=== PATIENT | male | born 1990 | race African-American/Black ===

== ENCOUNTER 2017-03-17 10:23 | Inpatient (IN) | payer OTHER ==
[2017-03-17 11:56] VITALS: BMI 23.5
--- NOTE | 2017-03-17 13:40 | HP ---
CIWA Score - CIWA Score Nausea/Vomitin Muscle Tremors: 3 Anxiety: 3 Agitation: 3 Paroxysmal Sweats: 2 Orientation: 0-Oriented Tacttile Disturbances: 2-Mild Itch/Numbness/Burn Auditory Disturbances: 2-Mild Harshness/Frighten Visual Disturbances: 2-Mild Sensitivity Headache: 2-Mild CIWA-Ar Total Score: 22 Admission ROS [facility] - HPI Chief Complaint: i need help to stop drinking alcohol Allergies/Adverse Reactions: Allergies Allergy/AdvReac Type Severity Reaction Status Date / Time No Known Allergies Allergy Verified 03/17/17 12:56 History of Present Illness: this 26 years old male with alcohol dependence,seeking detox,never been in detox before syncope bipolar disorder need help to stop drinking - Ebola screening Have you traveled outside of the country in the last 21 days: No (N) Have you had contact with anyone from an Ebola affected area: No Have you been sick,other than usual withdrawal symptoms: No - Review of Systems Constitutional: Loss of Appetite, Malaise, Night Sweats, Changes in sleep, Weakness EENT: reports: Nose Congestion Respiratory: reports: No Symptoms reported Cardiac: reports: No Symptoms Reported GI: reports: Diarrhea, Vomiting, Abdominal cramping : reports: No Symptoms Reported Musculoskeletal: reports: Back Pain, Muscle Pain Integumentary: reports: Dryness Neuro: reports: Headache, Tremors Endocrine: reports: No Symptoms Reported Hematology: reports: No Symptoms Reported Psychiatric: reports: No Sypmtoms Reported (bipolar disorder), Judgement Intact , Mood/Affect Appropiate, other Patient History - Patient Medical History Hx Anemia: No Hx Asthma: No Hx Chronic Obstructive Pulmonary Disease (COPD): No Hx Cancer: No Hx Cardiac Disorders: No Hx Congestive Heart Failure: No Hx Hypertension: No Hx Hypercholesterolemia: No Hx Pacemaker: No HX Cerebrovascular Accident: No Hx Seizures: No Hx Dementia: No Hx Diabetes: No Hx Gastrointestinal Disorders: No Hx Liver Disease: No Hx Genitourinary Disorders: No Hx Sexually Transmitted Disorders: No Hx Renal Disease (ESRD): No Hx Thyroid Disease: No Hx Human Immunodeficiency Virus (HIV): No (last 2015 negative) Hx Hepatitis C: No Hx Depression: No Hx Suicide Attempt: Yes (overdose at age 13) Hx Bipolar Disorder: Yes Hx Schizophrenia: No Other Medical History: no suicidal,no homicidal - Patient Surgical History Past Surgical History: No - PPD History Documented Results: Negative w/o proof Implanted On Prior [facility] Admission?: No PPD to be Administered?: Yes - Smoking Cessation Smoking history: Current every day smoker Have you smoked in the past 12 months: Yes Aproximately how many cigarettes per day: 5 Hx Chewing Tobacco Use: No Initiated information on smoking cessation: Yes 'Breaking Loose' booklet given: 03/17/17 - Substance & Tx. History Hx Alcohol Use: Yes Hx Substance Use: No Substance Use Type: Alcohol Hx Substance Use Treatment: No - Substances Abused Alcohol Route: Oral Frequency: Daily Amount used: elmer(1 liter) Age of first use: 6 Date of Last Use: 03/16/17 Family Disease History - Family Disease History Family Disease History: Other: Father (), Mother () Admission Physical Exam [facility] - Vital Signs Vital Signs: Vital Signs - 24 hr 03/17/17 11:53 Temperature 97.1 F L Pulse Rate 60 Respiratory 18 Rate Blood Pressure 129/94 - Physical General Appearance: Yes: Moderate Distress, Tremorous, Irritable, Sweating, Anxious HEENTM: Yes: Hearing grossly Normal, Normocephalic, Pharynx Normal Respiratory: Yes: Lungs Clear, Normal Breath Sounds, No Respiratory Distress Neck: Yes: Within Normal Limits, Supple, Trachea in good position Breast: Yes: Within Normal Limits Cardiology: Yes: Within Normal Limits, Regular Rhythm, Regular Rate, S1, S2 Abdominal: Yes: Non Tender, Soft, Organomegaly Genitourinary: Yes: Within Normal Limits Back: Yes: Muscle Spasm Musculoskeletal: Yes: full range of Motion, Back pain, Muscle Pain Extremities: Yes: Tremors 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 NML intact, Fully Oriented, Alert, Motor Strength 5/5 Integumentary: Yes: Dry Lymphatic: Yes: Within Normal Limits - Diagnostic (1) Alcohol dependence with uncomplicated withdrawal Current Visit: Yes Status: Acute (2) Syncope Current Visit: Yes Status: Acute (3) Bipolar disorder Current Visit: Yes Status: Acute (4) Nicotine dependence Current Visit: Yes Status: Acute Cleared for Admission [facility] - Detox or Rehab [facility] Level of Care: Medically Managed Detox Regimen/Protocol: Librium [facility] Breath Alcohol Content Breath Alcohol Content: 0 Urine Drug Screen - Results Drug Screen Negative: Yes
[2017-03-17] MEDS ORDERED: MENTHOL/PHENOL 1 EACH UD MM PRN (13:47)
[2017-03-17] MEDS ORDERED: hydrOXYzine PAMOATE 50 MG CAPSULE (FP) PO PRN (13:47)
[2017-03-17] MEDS ORDERED: ACETAMINOPHEN 325 MG TABLET (FP) PO PRN (13:47)
[2017-03-17] MEDS ORDERED: MAG HYDROX/AL HYDROX/SIMETH 30 ML UNIT-DOSE CUP PO PRN (13:47)
[2017-03-17] MEDS ORDERED: guaiFENesin/D-METHORPHAN HB 10 ML UNIT-DOSE CUPS PO PRN (13:47)
[2017-03-17] MEDS ORDERED: P-EPHED 60MG/TRIPROLIDI 2.5MG TABLET PO PRN (13:47)
[2017-03-17] MEDS ORDERED: diphenhydrAMINE HCL 50 MG CAPSULE PO PRN (13:47)
[2017-03-17] MEDS ORDERED: MAGNESIUM CITRATE 300 ML BOTTLE PO PRN (13:47)
[2017-03-17] MEDS ORDERED: MAGNESIUM HYDROX 2400MG/30ML ORAL SUSPENSION 30 ML CUP PO PRN (13:47)
[2017-03-17] MEDS ORDERED: chlordiazePOXIDE HCL 25 MG CAPSULE PO PRN (13:47)
[2017-03-17] MEDS ORDERED: LOPERAMIDE HCL 2 MG CAPSULE PO PRN (13:47)
[2017-03-17] MEDS ORDERED: IBUPROFEN 400 MG TABLET (FP) PO PRN (13:47)
[2017-03-17] MEDS ORDERED: chlordiazePOXIDE HCL 25 MG CAPSULE PO ONE (13:55)
--- NOTE | 2017-03-17 14:54 | CONSULT ---
[facility] Psychiatric Consult - Data Date of interview: 03/17/17 Admission source: [facility] Identifying data: This is 26 years old male with psychiatric hospitalization history intoxicated with: Alcohol, Nicotine, Substance Abuse History: - Smoking Cessation. Smoking history: Current every day smoker. Have you smoked in the past 12 months: Yes. Aproximately how many cigarettes per day: 5. Hx Chewing Tobacco Use: No. Initiated information on smoking cessation: Yes. 'Breaking Loose' booklet given: 03/17/17. - Substance & Tx. History. Hx Alcohol Use: Yes. Hx Substance Use: No. Substance Use Type : Alcohol. Hx Substance Use Treatment: No. - Substances Abused. Alcohol. Route: Oral. Frequency: Daily. Amount used: elmer(1 liter). Age of first use: 6. Date of Last Use: 03/16/17 Medical History: Syncope history Psychiatric History: Patient reports to carry Bipolar Disorder with most recent psychiatric admission on more then 10 years ago, reports taking prior to admission: Lamictal 50mg po bid Physical/Sexual Abuse/Trauma History: Denies Additional Comment: Lamictal 50mg po bid Mental Status Exam - Mental Status Exam Alert and Oriented to: Person Cognitive Function: Fair Patient Appearance: Well Groomed Mood: Apprehensive Affect: Mood Congruent Patient Behavior: Cooperative Speech Pattern: Appropriate Voice Loudness: Normal Thought Process: Goal Oriented Thought Disorder: Being Controlled Hallucinations: Denies Suicidal Ideation: Denies Homicidal Ideation: Denies Insight/Judgement: Fair Sleep: Difficulty falling asleep Appetite: Fair Muscle strength/Tone: Normal Gait/Station: Normal Additional Comments: Lamictal 50mg po bid Psychiatric Findings - Problem List ([place] 1, 2,3) (1) Alcohol dependence with uncomplicated withdrawal Current Visit: Yes Status: Acute (2) Bipolar disorder Current Visit: Yes Status: Acute (3) Nicotine dependence Current Visit: Yes Status: Acute (4) Drug-induced mood disorder Current Visit: Yes Status: Acute - Initial Treatment Plan Initial Treatment Plan: Lamictal 50mg po bid
[2017-03-17] MEDS: chlordiazePOXIDE HCL 25 MG CAPSULE PO SCH ×2 (17:07→22:27)
[2017-03-17 18:01] LABS: URINE APPEARANCE CLEAR; URINE BILIRUBIN NEGATIVE (NEGATIVE); URINE BLOOD NEGATIVE (NEGATIVE); URINE COLOR LTYELLOW; URINE GLUCOSE (UA) NEGATIVE (NEGATIVE); URINE KETONE NEGATIVE (NEGATIVE); URINE LEUK ESTERASE NEGATIVE (NEGATIVE); URINE NITRITE NEGATIVE (NEGATIVE); URINE PROTEIN NEGATIVE (NEGATIVE); URINE UROBILINOGEN NEGATIVE E.U./dl (0.2-1.0)
[2017-03-17] MEDS: lamoTRIgine 25 MG TABLET PO SCH (22:27)
[2017-03-17] MEDS: THIAMINE HCL 100 MG TABLET (FP) PO SCH (22:28)
[2017-03-18] MEDS: chlordiazePOXIDE HCL 25 MG CAPSULE PO SCH ×4 (05:52→22:46)
[2017-03-18 09:45] LABS: MCH 25.1 pg (25.7-33.7); MCHC 31.9 g/dl (32.0-35.9); MEAN CELL VOLUME 78.4 fl (80-96); MEAN PLT VOLUME 8.7 fl (7.5-11.1); PLATELET COUNT 178 K/MM3 (134-434); RDW 15.5 % (11.9-15.9); WHITE BLOOD COUNT 5.9 K/mm3 (4.0-10.0)
[2017-03-18 09:55] LABS: ALBUMIN 4.4 g/dl (3.4-5.0); ALK PHOS 60 U/L (45-117); ANION GAP 6 (8-16); BILIRUBIN,TOTAL 0.8 mg/dL (0.2-1.0); CALCIUM 9.2 mg/dL (8.5-10.1); CO2 30 mmol/L (21-32); CREATININE 0.9 mg/dL (0.7-1.3); GLUCOSE,RANDOM 87 mg/dL (74-106); SGOT/AST 17 U/L (15-37); SGPT/ALT 29 U/L (12-78); TOT PROT 7.5 g/dl (6.4-8.2)
[2017-03-18] MEDS: PRENATAL VITAMINS W/ FOLIC ACID TABLET (FP) PO SCH (10:26)
[2017-03-18] MEDS: lamoTRIgine 25 MG TABLET PO SCH ×2 (10:27→22:46)
--- NOTE | 2017-03-18 11:05 | EKG ---
Test Reason : Blood Pressure : / mmHG Vent. Rate : 060 BPM Atrial Rate : 060 BPM P-R Int : 200 ms QRS Dur : 094 ms QT Int : 376 ms P-R-T Axes : 052 105 025 degrees QTc Int : 376 ms NORMAL SINUS RHYTHM RIGHTWARD AXIS SEPTAL INFARCT , AGE UNDETERMINED ABNORMAL ECG NO PREVIOUS ECGS AVAILABLE Confirmed by BIMAL APPLE MD ([id number]) on 03/18/2017 11:05:10 AM Referred By: Confirmed By:BIMAL APPLE MD
--- NOTE | 2017-03-18 13:25 | PN ---
S CIWA - CIWA Score Nausea/Vomitin-Mild Nausea/No Vomiting Muscle Tremors: 4-Moderate,w/Arms Extend Anxiety: 3 Agitation: 2 Paroxysmal Sweats: 3 Orientation: 0-Oriented Tacttile Disturbances: 3-Moderate Itch/Numb/Burn Auditory Disturbances: 1-Very Mild Visual Disturbances: 0-None Headache: 0-None Present CIWA-Ar Total Score: 17 BHS Progress Note (SOAP) Subjective: Tremors, Sweating. Objective: PT. A & O X 3. NO ACUTE DISTRESS. 03/18/17 13:22 Vital Signs Temperature 97.2 F L 03/18/17 09:48 Pulse Rate 67 03/18/17 09:48 Respiratory Rate 18 03/18/17 09:48 Blood Pressure 101/66 03/18/17 09:48 O2 Sat by Pulse Oximetry (%) Laboratory Tests 03/17/17 03/18/17 03/18/17 15:00 06:00 06:00 WBC 5.9 RBC 5.45 Hgb 13.6 Hct 42.7 MCV 78.4 L MCHC 31.9 L RDW 15.5 Plt Count 178 MPV 8.7 Sodium 139 Potassium 4.0 Chloride 103 Carbon Dioxide 30 Anion Gap 6 L BUN 12 Creatinine 0.9 Creat Clearance w eGFR > 60 Random Glucose 87 Calcium 9.2 Total Bilirubin 0.8 AST 17 ALT 29 Alkaline Phosphatase 60 Total Protein 7.5 Albumin 4.4 Urine Color Ltyellow Urine Appearance Clear Urine pH 6.0 Ur Specific [place] 1.020 Urine Protein Negative Urine Glucose (UA) Negative Urine Ketones Negative Urine Blood Negative Urine Nitrite Negative Urine Bilirubin Negative Urine Urobilinogen Negative Ur Leukocyte Esterase Negative RPR Titer 03/18/17 06:00 WBC RBC Hgb Hct MCV MCHC RDW Plt Count MPV Sodium Potassium Chloride Carbon Dioxide Anion Gap BUN Creatinine Creat Clearance w eGFR Random Glucose Calcium Total Bilirubin AST ALT Alkaline Phosphatase Total Protein Albumin Urine Color Urine Appearance Urine pH Ur Specific [place] Urine Protein Urine Glucose (UA) Urine Ketones Urine Blood Urine Nitrite Urine Bilirubin Urine Urobilinogen Ur Leukocyte Esterase RPR Titer Nonreactive LABS NOTED. Assessment: 03/18/17 13:23 WITHDRAWAL SYMPTOMS. Plan: CONTINUE DETOX.
[2017-03-18] MEDS: THIAMINE HCL 100 MG TABLET (FP) PO SCH (22:46)
[2017-03-19] MEDS: chlordiazePOXIDE HCL 25 MG CAPSULE PO SCH ×2 (05:39→10:36)
[2017-03-19] MEDS: PRENATAL VITAMINS W/ FOLIC ACID TABLET (FP) PO SCH (10:35)
[2017-03-19] MEDS: lamoTRIgine 25 MG TABLET PO SCH ×2 (10:35→22:36)
--- NOTE | 2017-03-19 14:09 | PN ---
[facility] CIWA - CIWA Score Nausea/Vomitin-Mild Nausea/No Vomiting Muscle Tremors: 4-Moderate,w/Arms Extend Anxiety: 3 Agitation: 2 Paroxysmal Sweats: 3 Orientation: 0-Oriented Tacttile Disturbances: 1-Very Mild Itch/Numbness Auditory Disturbances: 2-Mild Harshness/Frighten Visual Disturbances: 1-Very Mild Sensitivity Headache: 0-None Present CIWA-Ar Total Score: 17 BHS Progress Note (SOAP) Subjective: Tremors, Anxious, Interrupted sleep. Objective: PT. A & O X 3, OBSERVED AMBULATING ON UNIT. NO ACUTE DISTRESS. 03/19/17 14:08 Vital Signs Temperature 97.4 F L 03/19/17 13:44 Pulse Rate 56 L 03/19/17 13:44 Respiratory Rate 18 03/19/17 13:44 Blood Pressure 112/70 03/19/17 13:44 O2 Sat by Pulse Oximetry (%) Laboratory Tests 03/17/17 03/18/17 03/18/17 15:00 06:00 06:00 WBC 5.9 RBC 5.45 Hgb 13.6 Hct 42.7 MCV 78.4 L MCHC 31.9 L RDW 15.5 Plt Count 178 MPV 8.7 Sodium 139 Potassium 4.0 Chloride 103 Carbon Dioxide 30 Anion Gap 6 L BUN 12 Creatinine 0.9 Creat Clearance w eGFR > 60 Random Glucose 87 Calcium 9.2 Total Bilirubin 0.8 AST 17 ALT 29 Alkaline Phosphatase 60 Total Protein 7.5 Albumin 4.4 Urine Color Ltyellow Urine Appearance Clear Urine pH 6.0 Ur Specific [place] 1.020 Urine Protein Negative Urine Glucose (UA) Negative Urine Ketones Negative Urine Blood Negative Urine Nitrite Negative Urine Bilirubin Negative Urine Urobilinogen Negative Ur Leukocyte Esterase Negative RPR Titer 03/18/17 06:00 WBC RBC Hgb Hct MCV MCHC RDW Plt Count MPV Sodium Potassium Chloride Carbon Dioxide Anion Gap BUN Creatinine Creat Clearance w eGFR Random Glucose Calcium Total Bilirubin AST ALT Alkaline Phosphatase Total Protein Albumin Urine Color Urine Appearance Urine pH Ur Specific [place] Urine Protein Urine Glucose (UA) Urine Ketones Urine Blood Urine Nitrite Urine Bilirubin Urine Urobilinogen Ur Leukocyte Esterase RPR Titer Nonreactive LABS NOTED. Assessment: 03/19/17 14:08 WITHDRAWAL SYMPTOMS. Plan: CONTINUE DETOX.
[2017-03-19] MEDS: chlordiazePOXIDE 5 MG CAPSULE PO SCH ×2 (17:13→22:36)
[2017-03-19] MEDS: THIAMINE HCL 100 MG TABLET (FP) PO SCH (22:36)
[2017-03-20] MEDS: chlordiazePOXIDE 5 MG CAPSULE PO SCH ×2 (05:38→10:47)
[2017-03-20] MEDS: lamoTRIgine 25 MG TABLET PO SCH ×2 (10:46→22:30)
[2017-03-20] MEDS: PRENATAL VITAMINS W/ FOLIC ACID TABLET (FP) PO SCH (10:46)
--- NOTE | 2017-03-20 13:05 | PN ---
BHS Progress Note (SOAP) Subjective: Tremors only Detox symptom reported by patient today. Objective: PT. A & O X 3, OBSERVED AMBULATING ON UNIT. NO ACUTE DISTRESS. 03/20/17 13:04 Vital Signs Temperature 96.3 F L 03/20/17 10:13 Pulse Rate 63 03/20/17 10:13 Respiratory Rate 18 03/20/17 10:13 Blood Pressure 111/66 03/20/17 10:13 O2 Sat by Pulse Oximetry (%) Laboratory Tests 03/17/17 03/18/17 03/18/17 15:00 06:00 06:00 WBC 5.9 RBC 5.45 Hgb 13.6 Hct 42.7 MCV 78.4 L MCHC 31.9 L RDW 15.5 Plt Count 178 MPV 8.7 Sodium 139 Potassium 4.0 Chloride 103 Carbon Dioxide 30 Anion Gap 6 L BUN 12 Creatinine 0.9 Creat Clearance w eGFR > 60 Random Glucose 87 Calcium 9.2 Total Bilirubin 0.8 AST 17 ALT 29 Alkaline Phosphatase 60 Total Protein 7.5 Albumin 4.4 Urine Color Ltyellow Urine Appearance Clear Urine pH 6.0 Ur Specific [place] 1.020 Urine Protein Negative Urine Glucose (UA) Negative Urine Ketones Negative Urine Blood Negative Urine Nitrite Negative Urine Bilirubin Negative Urine Urobilinogen Negative Ur Leukocyte Esterase Negative RPR Titer 03/18/17 06:00 WBC RBC Hgb Hct MCV MCHC RDW Plt Count MPV Sodium Potassium Chloride Carbon Dioxide Anion Gap BUN Creatinine Creat Clearance w eGFR Random Glucose Calcium Total Bilirubin AST ALT Alkaline Phosphatase Total Protein Albumin Urine Color Urine Appearance Urine pH Ur Specific [place] Urine Protein Urine Glucose (UA) Urine Ketones Urine Blood Urine Nitrite Urine Bilirubin Urine Urobilinogen Ur Leukocyte Esterase RPR Titer Nonreactive LABS NOTED. Assessment: 03/20/17 13:04 WITHDRAWAL SYMPTOMS. Plan: CONTINUE DETOX.
[2017-03-20] MEDS: chlordiazePOXIDE HCL 10 MG CAPSULE PO SCH ×2 (17:43→22:30)
[2017-03-20] MEDS: THIAMINE HCL 100 MG TABLET (FP) PO SCH (22:32)
[2017-03-21] MEDS: chlordiazePOXIDE HCL 10 MG CAPSULE PO SCH (05:57)
[2017-03-21 06:19] VITALS: BP 117/78; PULSE 55; TEMP 96.3
--- NOTE | 2017-03-21 14:20 | DS ---
[facility] Detox Discharge Summary Admission Date: 03/17/17 Discharge Date: 03/21/17 - History Present History: Alcohol Dependence Additional Comments: ADVISED PATIENT TO FOLLOW-UP WITH [facility] AFTER DISCHARGE FROM DETOX FOR GENERAL MEDICAL ASSESSMENT. Pertinent Past History: Bipolar Disorder. - Physical Exam Results Vital Signs: Vital Signs Temperature 96.3 F L 03/21/17 06:19 Pulse Rate 55 L 03/21/17 06:19 Respiratory Rate 16 03/21/17 06:19 Blood Pressure 117/78 03/21/17 06:19 O2 Sat by Pulse Oximetry (%) Pertinent Admission Physical Exam Findings: WITHDRAWAL SYMPTOMS. Laboratory Tests 03/17/17 03/18/17 03/18/17 15:00 06:00 06:00 WBC 5.9 RBC 5.45 Hgb 13.6 Hct 42.7 MCV 78.4 L MCHC 31.9 L RDW 15.5 Plt Count 178 MPV 8.7 Sodium 139 Potassium 4.0 Chloride 103 Carbon Dioxide 30 Anion Gap 6 L BUN 12 Creatinine 0.9 Creat Clearance w eGFR > 60 Random Glucose 87 Calcium 9.2 Total Bilirubin 0.8 AST 17 ALT 29 Alkaline Phosphatase 60 Total Protein 7.5 Albumin 4.4 Urine Color Ltyellow Urine Appearance Clear Urine pH 6.0 Ur Specific [place] 1.020 Urine Protein Negative Urine Glucose (UA) Negative Urine Ketones Negative Urine Blood Negative Urine Nitrite Negative Urine Bilirubin Negative Urine Urobilinogen Negative Ur Leukocyte Esterase Negative RPR Titer 03/18/17 06:00 WBC RBC Hgb Hct MCV MCHC RDW Plt Count MPV Sodium Potassium Chloride Carbon Dioxide Anion Gap BUN Creatinine Creat Clearance w eGFR Random Glucose Calcium Total Bilirubin AST ALT Alkaline Phosphatase Total Protein Albumin Urine Color Urine Appearance Urine pH Ur Specific [place] Urine Protein Urine Glucose (UA) Urine Ketones Urine Blood Urine Nitrite Urine Bilirubin Urine Urobilinogen Ur Leukocyte Esterase RPR Titer Nonreactive LABS NOTED. - Treatment Hospital Course: Detox Protocol Followed, Detoxed Safely, Responded well, Discharged Condition Good, Rehab Referral Accepted Patient has Accepted a Rehab Referral to: [facility]. PATIENT TO GO FOR ADMISSION ON 03/23/2017. - Medication Discharge Medications: Ambulatory Orders Lamotrigine [Lamictal -] 50 mg PO BID #60 tablet 03/17/17 Lamotrigine [Lamictal] 50 mg PO BID 03/17/17 - Diagnosis (1) Alcohol dependence with uncomplicated withdrawal Status: Acute (2) Bipolar disorder Status: Chronic Qualifiers: Active/Remission status: remission status unspecified Qualified Code (s): F31.9 - Bipolar disorder, unspecified (3) Drug-induced mood disorder Status: Acute (4) Nicotine dependence Status: Chronic Qualifiers: Nicotine product type: cigarettes Substance use status: uncomplicated Qualified Code(s): F17.210 - Nicotine dependence, cigarettes, uncomplicated (5) Syncope Status: Acute Qualifiers: Syncope type: unspecified Qualified Code(s): R55 - Syncope and collapse - AMA Did Patient Leave Against Medical Advice: No
== END 2017-03-21 09:05 | disposition home or self-care (01) | DRG 775 ==
LOC: YASAS 10:23 → Y3N 13:40
PROVIDERS: ADMIT Internal Medicine; ATTEND Internal Medicine
PROC: HZ2ZZZZ Detoxification Services for Substance Abuse Treatment (ICD-10-PCS; principal; 2017-03-21)
DX: F10.230 Alcohol dependence with withdrawal, uncomplicated (principal); F17.210 Nicotine dependence, cigarettes, uncomplicated; F39 Unspecified mood [affective] disorder; F19.24 Other psychoactive substance dependence with psychoactive substance-induced mood disorder; R55 Syncope and collapse
CPT/HCPCS: 36415; 80053; 81003; 85027; 86593; 93005; 93010

== ENCOUNTER 2017-04-10 15:43 | Inpatient (IN) | payer OTHER ==
[2017-04-10 17:11] VITALS: BMI 25.3
--- NOTE | 2017-04-10 17:26 | HP ---
Admission ROS [facility] Chief Complaint: I WANT TO GO TO REHAB LAST DETOX FROM 03/17/17-03/21/17 [facility] Allergies/Adverse Reactions: Allergies Allergy/AdvReac Type Severity Reaction Status Date / Time No Known Allergies Allergy Verified 03/17/17 12:56 History of Present Illness: 26 YEARS OLD MALE WITH LONG HISTORY OF ALCOHOL NICOTINE DEPENDENCE, DENIES MEDICAL ISSUE HAS BIPOLAR II TREATED WITH LOMACTAL IS ADMITTED TO REHAB Exam Limitations: No Limitations - Ebola screening Have you traveled outside of the country in the last 21 days: No Have you had contact with anyone from an Ebola affected area: No Have you been sick,other than usual withdrawal symptoms: No Do you have a fever: No - Review of Systems Constitutional: No Symptoms Reported, Weight Stable EENT: reports: Blurred Vision (WEAR EYE GLASSES AT HOME) Respiratory: reports: No Symptoms reported Cardiac: reports: No Symptoms Reported GI: reports: No Symptoms Reported : reports: No Symptoms Reported Musculoskeletal: reports: No Symptoms Reported Integumentary: reports: No Symptoms Reported Neuro: reports: No Symptoms reported Endocrine: reports: No Symptoms Reported Hematology: reports: No Symptoms Reported Psychiatric: reports: Judgement Intact, Mood/Affect Appropiate, Orientated x3 Other Systems: Reviewed and Negative Patient History - Patient Medical History Hx Anemia: No Hx Asthma: No Hx Chronic Obstructive Pulmonary Disease (COPD): No Hx Cancer: No Hx Cardiac Disorders: No Hx Congestive Heart Failure: No Hx Hypertension: No Hx Hypercholesterolemia: No Hx Pacemaker: No HX Cerebrovascular Accident: No Hx Seizures: No Hx Dementia: No Hx Diabetes: No Hx Gastrointestinal Disorders: No Hx Liver Disease: No Hx Genitourinary Disorders: No Hx Sexually Transmitted Disorders: No Hx Renal Disease (ESRD): No Hx Thyroid Disease: No Hx Human Immunodeficiency Virus (HIV): No (last 2016 negative) Hx Hepatitis C: No Hx Depression: No Hx Suicide Attempt: Yes (overdose at age 13) Hx Bipolar Disorder: Yes Hx Schizophrenia: No - Patient Surgical History Past Surgical History: No Hx Neurologic Surgery: No Hx Cataract Extraction: No Hx Cardiac Surgery: No Hx Lung Surgery: No Hx Breast Surgery: No Hx Breast Biopsy: No Hx Abdominal Surgery: No Hx Appendectomy: No Hx Cholecystectomy: No Hx Genitourinary Surgery: No Hx Orthopedic Surgery: No - PPD History Previous Implant?: Yes Documented Results: Negative w/proof Implanted On Prior R Admission?: Yes Date: 03/19/17 PPD to be Administered?: No - Smoking Cessation Smoking history: Never smoked Have you smoked in the past 12 months: No Aproximately how many cigarettes per day: 0 Cigars Per Day: 20 Hx Chewing Tobacco Use: No Initiated information on smoking cessation: Yes 'Breaking Loose' booklet given: 04/10/17 - Substance & Tx. History Hx Alcohol Use: Yes Hx Substance Use: No Substance Use Type: Alcohol Hx Substance Use Treatment: Yes (03/17-03/21/17 DETOX [facility]) - Substances Abused Alcohol Route: Oral Frequency: Daily Amount used: 24 [employer] Age of first use: 6 Date of Last Use: 04/10/17 (03/17/17) Family Disease History - Family Disease History Family Disease History: Other: Father (), Mother () Admission Physical Exam [facility] - Vital Signs Vital Signs: Vital Signs - 24 hr 04/10/17 17:08 Temperature 96.5 F L Pulse Rate 61 Respiratory 18 Rate Blood Pressure 133/97 - Physical General Appearance: Yes: No Apparent Distress, Nourished, Appropriately Dressed HEENTM: Yes: Hearing grossly Normal, Normal ENT Inspection, Normocephalic, Normal Voice Respiratory: Yes: Chest Non-Tender, Lungs Clear, Normal Breath Sounds, No Respiratory Distress, No Accessory Muscle Use Neck: Yes: Supple, Trachea in good position Breast: Yes: Breasts Symetrical Cardiology: Yes: Regular Rhythm, Regular Rate, S1, S2 Abdominal: Yes: Non Tender, Soft Genitourinary: Yes: Within Normal Limits Back: Yes: Normal Inspection Musculoskeletal: Yes: full range of Motion, Gait Steady Extremities: Yes: Normal Inspection, Normal Range of Motion, Non-Tender Neurological: Yes: Fully Oriented, Alert, Motor Strength 5/5, Normal Mood/Affect , Normal Response Integumentary: Yes: Normal Color, Warm Lymphatic: Yes: Within Normal Limits - Diagnostic (1) Alcohol dependence with uncomplicated withdrawal Current Visit: Yes Status: Acute (2) Nicotine dependence Current Visit: Yes Status: Acute Qualifiers: Nicotine product type: cigarettes Substance use status: in withdrawal Qualified Code(s): F17.213 - Nicotine dependence, cigarettes, with withdrawal (3) Bipolar II disorder Current Visit: Yes Status: Suspected Cleared for Admission [facility] - Detox or Rehab [facility] Level of Care: Observation Bed Detox Regimen/Protocol: Not Applicable Claeared for Rehab Admission: Yes [facility] Breath Alcohol Content Breath Alcohol Content: 0 Urine Drug Screen - Results Drug Screen Negative: Yes
[2017-04-10] MEDS ORDERED: LOPERAMIDE HCL 2 MG CAPSULE PO PRN (17:31)
[2017-04-10] MEDS ORDERED: IBUPROFEN 400 MG TABLET (FP) PO PRN (17:31)
[2017-04-10] MEDS ORDERED: P-EPHED 60MG/TRIPROLIDI 2.5MG TABLET PO PRN (17:31)
[2017-04-10] MEDS ORDERED: MENTHOL/PHENOL 1 EACH UD MM PRN (17:31)
[2017-04-10] MEDS ORDERED: guaiFENesin/D-METHORPHAN HB 10 ML UNIT-DOSE CUPS PO PRN (17:31)
[2017-04-10] MEDS ORDERED: ACETAMINOPHEN 325 MG TABLET (FP) PO PRN (17:31)
[2017-04-10] MEDS ORDERED: hydrOXYzine PAMOATE 50 MG CAPSULE (FP) PO PRN (17:31)
[2017-04-10] MEDS ORDERED: MAGNESIUM CITRATE 300 ML BOTTLE PO PRN (17:31)
[2017-04-10] MEDS ORDERED: NICOTINE POLACRILEX 4 MG GUM BC PRN (17:31)
[2017-04-10] MEDS ORDERED: MAG HYDROX/AL HYDROX/SIMETH 30 ML UNIT-DOSE CUP PO PRN (17:31)
[2017-04-10] MEDS ORDERED: MAGNESIUM HYDROX 2400MG/30ML ORAL SUSPENSION 30 ML CUP PO PRN (17:31)
[2017-04-10] MEDS ORDERED: NICOTINE 21 MG/24 HOURS TOPICAL PATCH TD PRN (18:00)
[2017-04-10] MEDS: lamoTRIgine 25 MG TABLET PO SCH (22:19)
[2017-04-10] MEDS: THIAMINE HCL 100 MG TABLET (FP) PO SCH (22:19)
[2017-04-11] MEDS: lamoTRIgine 25 MG TABLET PO SCH ×2 (09:32→21:08)
[2017-04-11] MEDS: PRENATAL VITAMINS W/ FOLIC ACID TABLET (FP) PO SCH (09:32)
[2017-04-11 10:28] LABS: MCH 25.1 pg (25.7-33.7); MCHC 31.9 g/dl (32.0-35.9); MEAN CELL VOLUME 78.8 fl (80-96); MEAN PLT VOLUME 8.3 fl (7.5-11.1); PLATELET COUNT 175 K/MM3 (134-434); RDW 15.2 % (11.9-15.9); WHITE BLOOD COUNT 5.9 K/mm3 (4.0-10.0)
[2017-04-11 10:29] LABS: URINE APPEARANCE CLEAR; URINE BILIRUBIN NEGATIVE (NEGATIVE); URINE BLOOD NEGATIVE (NEGATIVE); URINE COLOR YELLOW; URINE GLUCOSE (UA) NEGATIVE (NEGATIVE); URINE KETONE NEGATIVE (NEGATIVE); URINE LEUK ESTERASE NEGATIVE (NEGATIVE); URINE NITRITE NEGATIVE (NEGATIVE); URINE PROTEIN NEGATIVE (NEGATIVE); URINE UROBILINOGEN NEGATIVE mg/dL (0.2-1.0)
[2017-04-11 10:34] LABS: ALBUMIN 3.8 g/dl (3.4-5.0); ANION GAP 6 (8-16); CO2 31 mmol/L (21-32); GLUCOSE,RANDOM 93 mg/dL (74-106)
[2017-04-11 10:39] LABS: ALK PHOS 53 U/L (45-117); BILIRUBIN,TOTAL 0.8 mg/dL (0.2-1.0); CREATININE 0.9 mg/dL (0.7-1.3); SGOT/AST 13 U/L (15-37); SGPT/ALT 22 U/L (12-78); TOT PROT 6.4 g/dl (6.4-8.2)
--- NOTE | 2017-04-11 17:07 | HP ---
Psychiatrist Admission - Data Date of interview: 04/11/17 Admission source: [facility] Identifying data: First admission to [facility] at [address] [place] [address] for this 26 y/ o AA male seeking rehabilitation treatment for alcohol dependence.Patient is single,a father of two,domiciled unemployed and reportedly deprived of any means of support. Medical History: Patient endorses good general health. Psychiatric History: Patient denies history of psychiatric hospitalizations.He is however in OPD treatment at a mental health clinic in [place] (name not recalled).Diagnosed with Bipolar Disorder.Maintained on lamictal 100 mg/day.Mr Vergara indicates that he is adherent to his outpatient regime.Noted remote history of suicide attempt (age 13 ) via overdose with medications. Physical/Sexual Abuse/Trauma History: Patient denies. Vital Signs: Vital Signs - 24 hr 04/10/17 04/10/17 04/11/17 17:08 19:17 03:30 Temperature 96.5 F L 97.7 F Pulse Rate 61 64 Respiratory 18 18 18 Rate Blood Pressure 133/97 129/84 04/11/17 06:57 Temperature 98.2 F Pulse Rate 83 Respiratory 18 Rate Blood Pressure 110/74 Allergies/Adverse Reactions: Allergies Allergy/AdvReac Type Severity Reaction Status Date / Time lactose Allergy Severe Vomiting Verified 04/10/17 17:57 - Substance Abuse/Tx History Hx Alcohol Use: Yes Hx Substance Use: Yes (alcohol.No drugs.Never smokes.) Substance Use Type: Alcohol Hx Substance Use Treatment: Yes - Admission Criteria Previous failed treatment: Yes Poor recovery environment: Yes Comorbidities: Yes Lacks judgement: Yes Mental Status Exam - Mental Status Exam Alert and Oriented to: Time, Place, Person Cognitive Function: Good Patient Appearance: Well Groomed Mood: Hopeful, Euthymic Affect: Appropriate, Normal Range Patient Behavior: Appropriate, Cooperative Speech Pattern: Clear Voice Loudness: Normal Thought Process: Intact, Goal Oriented Thought Disorder: Not Present Hallucinations: Denies Suicidal Ideation: Denies Homicidal Ideation: Denies Insight/Judgement: Fair Sleep: Fair Appetite: Good Muscle strength/Tone: Normal Gait/Station: Normal Psychiatric Findings - Problem List ([place] 1, 2,3) (1) Bipolar disorder Current Visit: Yes Status: Chronic Qualifiers: Active/Remission status: remission status unspecified Qualified Code (s): F31.9 - Bipolar disorder, unspecified (2) Alcohol dependence Current Visit: Yes Status: Acute - Initial Treatment Plan Initial Treatment Plan: Previous records are reviewed.[facility] report is appreciated.Psychoeducation and support are provided in this session.Medications revisited.Lamictal 50 mg po bid.Ordered.Side effects/ benefits of lamotrigine discussed with the patient.Made aware of risk of exfoliative dermatitis.Patient reports a history of good reponse/tolerability to that medication.Instructed to alert staff if occurrence of skin rash.Patient is in agreement with this careplan.Observation.
[2017-04-11] MEDS: THIAMINE HCL 100 MG TABLET (FP) PO SCH (21:08)
[2017-04-12] MEDS: lamoTRIgine 25 MG TABLET PO SCH ×2 (09:44→21:15)
[2017-04-12] MEDS: PRENATAL VITAMINS W/ FOLIC ACID TABLET (FP) PO SCH (09:44)
--- NOTE | 2017-04-12 13:29 | EKG ---
Test Reason : Blood Pressure : / mmHG Vent. Rate : 063 BPM Atrial Rate : 063 BPM P-R Int : 206 ms QRS Dur : 086 ms QT Int : 374 ms P-R-T Axes : 057 096 057 degrees QTc Int : 382 ms NORMAL SINUS RHYTHM RIGHTWARD AXIS BORDERLINE ECG WHEN COMPARED WITH ECG OF 17-MAR-2017 14:00, NO SIGNIFICANT CHANGE WAS FOUND Confirmed by BIMAL APPLE MD ([id number]) on 04/12/2017 1:28:42 PM Referred By: Confirmed By:BIMAL APPLE MD
[2017-04-12] MEDS: THIAMINE HCL 100 MG TABLET (FP) PO SCH (21:15)
[2017-04-13] MEDS ORDERED: PT OWN MED DRAWER 7, Y5N ONE (09:42)
[2017-04-13] MEDS: lamoTRIgine 25 MG TABLET PO SCH ×2 (09:42→21:05)
[2017-04-13] MEDS: PRENATAL VITAMINS W/ FOLIC ACID TABLET (FP) PO SCH (09:44)
[2017-04-13] MEDS: THIAMINE HCL 100 MG TABLET (FP) PO SCH (21:05)
[2017-04-14] MEDS: lamoTRIgine 25 MG TABLET PO SCH ×2 (09:38→21:46)
[2017-04-14] MEDS: PRENATAL VITAMINS W/ FOLIC ACID TABLET (FP) PO SCH (09:38)
[2017-04-14] MEDS: THIAMINE HCL 100 MG TABLET (FP) PO SCH (21:46)
[2017-04-15] MEDS: PRENATAL VITAMINS W/ FOLIC ACID TABLET (FP) PO SCH (09:49)
[2017-04-15] MEDS: lamoTRIgine 25 MG TABLET PO SCH ×2 (09:49→21:55)
[2017-04-15] MEDS: diphenhydrAMINE HCL 50 MG CAPSULE PO PRN (21:55)
[2017-04-15] MEDS: THIAMINE HCL 100 MG TABLET (FP) PO SCH (21:55)
[2017-04-16] MEDS: lamoTRIgine 25 MG TABLET PO SCH ×2 (09:40→21:27)
[2017-04-16] MEDS: PRENATAL VITAMINS W/ FOLIC ACID TABLET (FP) PO SCH (09:40)
[2017-04-16] MEDS: diphenhydrAMINE HCL 50 MG CAPSULE PO PRN (21:27)
[2017-04-16] MEDS: THIAMINE HCL 100 MG TABLET (FP) PO SCH (21:28)
[2017-04-17] MEDS: lamoTRIgine 25 MG TABLET PO SCH ×2 (09:59→21:21)
[2017-04-17] MEDS: PRENATAL VITAMINS W/ FOLIC ACID TABLET (FP) PO SCH (09:59)
[2017-04-17] MEDS: diphenhydrAMINE HCL 50 MG CAPSULE PO PRN (21:21)
[2017-04-17] MEDS: THIAMINE HCL 100 MG TABLET (FP) PO SCH (21:22)
[2017-04-18] MEDS: lamoTRIgine 25 MG TABLET PO SCH ×2 (09:58→21:18)
[2017-04-18] MEDS: PRENATAL VITAMINS W/ FOLIC ACID TABLET (FP) PO SCH (09:58)
[2017-04-18] MEDS: THIAMINE HCL 100 MG TABLET (FP) PO SCH (21:19)
[2017-04-18] MEDS: diphenhydrAMINE HCL 50 MG CAPSULE PO PRN (21:19)
[2017-04-19] MEDS: PRENATAL VITAMINS W/ FOLIC ACID TABLET (FP) PO SCH (09:54)
[2017-04-19] MEDS: lamoTRIgine 25 MG TABLET PO SCH ×2 (09:54→21:19)
[2017-04-19] MEDS: diphenhydrAMINE HCL 50 MG CAPSULE PO PRN (21:19)
[2017-04-19] MEDS: THIAMINE HCL 100 MG TABLET (FP) PO SCH (21:19)
[2017-04-20] MEDS: PRENATAL VITAMINS W/ FOLIC ACID TABLET (FP) PO SCH (10:54)
[2017-04-20] MEDS: lamoTRIgine 25 MG TABLET PO SCH ×2 (10:54→21:25)
[2017-04-20] MEDS: diphenhydrAMINE HCL 50 MG CAPSULE PO PRN (21:24)
[2017-04-20] MEDS: THIAMINE HCL 100 MG TABLET (FP) PO SCH (21:25)
[2017-04-21] MEDS: lamoTRIgine 25 MG TABLET PO SCH ×2 (09:54→21:19)
[2017-04-21] MEDS: PRENATAL VITAMINS W/ FOLIC ACID TABLET (FP) PO SCH (09:54)
[2017-04-21] MEDS: THIAMINE HCL 100 MG TABLET (FP) PO SCH (21:19)
[2017-04-21] MEDS: diphenhydrAMINE HCL 50 MG CAPSULE PO PRN (21:19)
[2017-04-22] MEDS: lamoTRIgine 25 MG TABLET PO SCH ×2 (09:45→21:12)
[2017-04-22] MEDS: PRENATAL VITAMINS W/ FOLIC ACID TABLET (FP) PO SCH (09:45)
[2017-04-22] MEDS: diphenhydrAMINE HCL 50 MG CAPSULE PO PRN (21:12)
[2017-04-22] MEDS: THIAMINE HCL 100 MG TABLET (FP) PO SCH (21:13)
[2017-04-23 06:25] VITALS: BP 104/69; PULSE 72; TEMP 97.7
[2017-04-23] MEDS: lamoTRIgine 25 MG TABLET PO SCH (09:52)
[2017-04-23] MEDS: PRENATAL VITAMINS W/ FOLIC ACID TABLET (FP) PO SCH (09:52)
--- NOTE | 2017-04-23 11:45 | PN ---
Psychiatric Progress Note Vital Signs: Vital Signs Period Temp Pulse Resp BP Sys/Alonso Pulse Ox Last 24 Hr 97.7 F 72 16-18 104/69 Date of Session: 04/23/17 Chief Complaint:: discharge visit HPI: Patient is addressing alcohol dependence comorbid Bipolar disorder. ROS: WNL Current Medications: Active Medications Generic Name Dose Route Start Last Admin Trade Name Freq PRN Reason Stop Dose Admin Acetaminophen 650 mg 04/10/17 17:31 Tylenol - PO Q4H PRN PAIN Al Hydroxide/Mg Hydroxide 30 ml 04/10/17 17:31 Mylanta Oral Suspension - PO Q6H PRN DYSPEPSIA Diphenhydramine HCl 50 mg 04/10/17 17:31 04/22/17 21:12 Benadryl - PO 50 mg HSMR1 PRN Administration INSOMNIA Eucalyptus/Menthol/Phenol/Sorbitol 1 each 04/10/17 17:31 Cepastat Lozenge - MM Q4H PRN SORE THROAT Guaifenesin 10 ml 04/10/17 17:31 Robitussin Dm - PO Q6H PRN COUGH Hydroxyzine Pamoate 50 mg 04/10/17 17:31 Vistaril - PO Q4H PRN AGITATION Ibuprofen 400 mg 04/10/17 17:31 Motrin - PO Q6H PRN SEVERE PAIN Lamotrigine 50 mg 04/10/17 22:00 04/23/17 09:52 Lamictal - PO 50 mg BID USAMA Administration Loperamide HCl 4 mg 04/10/17 17:31 Imodium - PO Q6H PRN DIARRHEA Magnesium Citrate 300 ml 04/10/17 17:31 Citroma - PO Q48H PRN CONSTIPATION Magnesium Hydroxide 30 ml 04/10/17 17:31 Milk Of Magnesia - PO DAILY PRN CONSTIPATION Nicotine 21 mg 04/10/17 18:00 Nicoderm Patch - TD DAILY PRN WITHDRAWAL(CONT SUBST) Nicotine Polacrilex 4 mg 04/10/17 17:31 Nicorette Gum - BC Q2H PRN NICOTINE REPLACEMENT RX Multivit/Folic Acid/Iron 1 tab 04/11/17 10:00 04/23/17 09:52 Vitamins (Sjr) - PO Not Given DAILY USAMA Pseudoephedrine/Triprolidine 1 combo 04/10/17 17:31 Actifed - PO TID PRN NASAL CONGESTION Thiamine HCl 100 mg 04/10/17 22:00 04/22/17 21:13 Vitamin B1 - PO Not Given HS USAMA Current Side Effect: No Lab tests ordered: No Lab tests reviewed: Yes Provider note:: Patient completed today treatment and met his identified goals, will contineu to address his issues at [facility] Patient was encouraged to continue maintain abstinence and utilize all supports available to prevent relapses. Patient reported he does not need scripts for Lamictal since he has medication at home. Patient is stable for discharge. Total face to face time:: 20 Mental Status Exam - Mental Status Exam Alert and Oriented to: Time, Place, Person Cognitive Function: Good Patient Appearance: Well Groomed Affect: Appropriate, Normal Range Patient Behavior: Appropriate, Cooperative Speech Pattern: Clear, Appropriate Voice Loudness: Normal Thought Process: Intact, Goal Oriented Thought Disorder: Not Present Hallucinations: Denies Suicidal Ideation: Denies Homicidal Ideation: Denies Insight/Judgement: Fair Sleep: Fair Appetite: Fair Muscle strength/Tone: Normal Gait/Station: Normal Psychiatric Treatment Plan - Problem List (1) Alcohol dependence Current Visit: Yes (2) Nicotine dependence Current Visit: Yes Qualifiers: Nicotine product type: cigarettes Substance use status: in withdrawal Qualified Code(s): F17.213 - Nicotine dependence, cigarettes, with withdrawal (3) Bipolar disorder Current Visit: Yes Qualifiers: Active/Remission status: remission status unspecified Qualified Code (s): F31.9 - Bipolar disorder, unspecified
== END 2017-04-23 12:03 | disposition home or self-care (01) | DRG 772 ==
LOC: YASAS 15:43 → Y5N 17:35
PROVIDERS: ADMIT Psychiatry & Neurology Psychiatry; ATTEND Psychiatry & Neurology Psychiatry
PROC: HZ42ZZZ Group Counseling for Substance Abuse Treatment, Cognitive-Behavioral (ICD-10-PCS; principal; 2017-04-10)
DX: F10.20 Alcohol dependence, uncomplicated (principal); F17.213 Nicotine dependence, cigarettes, with withdrawal; F31.9 Bipolar disorder, unspecified; Z91.011 Allergy to milk products; Z91.5 Personal history of self-harm
CPT/HCPCS: 36415; 80053; 81003; 85027; 86593; 93005; 93010

== ENCOUNTER 2019-04-17 16:40 | Emergency (ER) | payer OTHER ==
[2019-04-17 17:16] VITALS: BMI 23.5
[2019-04-17] MEDS ORDERED: SODIUM CHLORIDE 0.9% 500 ML INFUS.BAG IV ONE (17:21)
--- NOTE | 2019-04-17 17:24 | PDOC ---
History of Present Illness - General Chief Complaint: Back Pain Stated Complaint: back pain,fever Time Seen by Provider: 04/17/19 16:49 - History of Present Illness Initial Comments: 04/17/19 21:29 28yo M no PMH presents from urgent care c/o fever, headache, neck pain, photophobia, and sore throat (resolved) x6days. Pt started to not feel well on Thursday and went to urgent care, where he was told he has a viral syndrome. Pt felt better for a couple days with Tylenol but then felt worse today so returned to Urgent Care. Strep test negative at urgent care. Pt sent here for concern for meningitis with temp of 101.7. Pt c/o fatigue, myalgias, photophobia , neck pain (currently resolved), sore throat (resolved yesterday), pressure- type bitemporal headache (currently resolved), fever, and chills. Denies N/V, CP , SOB, numbness/tingling, weakness, abdominal pain, D/C, blood in stool or urine , dysuria, flu shot. UTD on immunizations. PCP at [facility]. 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 Denies outdoor activity, camping, or known tick bites. Denies hx of similar sx. Past History - Past Medical History Allergies/Adverse Reactions: Allergies Allergy/AdvReac Type Severity Reaction Status Date / Time No Known Drug Allergies Allergy Verified 04/13/17 18:32 lactose AdvReac Severe Vomiting Verified 04/13/17 18:32 Home Medications: Ambulatory Orders NK [No Known Home Medication] 04/17/19 Anemia: No Asthma: No Cancer: No Cardiac Disorders: No CVA: No COPD: No CHF: No Dementia: No Diabetes: No GI Disorders: No Disorders: No HTN: No Hypercholesterolemia: No Kidney Stones: No Liver Disease: No Seizures: No Thyroid Disease: No - Surgical History Abdominal Surgery: No Appendectomy: No Cardiac Surgery: No Cholecystectomy: No Lung Surgery: No Neurologic Surgery: No Orthopedic Surgery: No - Reproductive History Testicular Surgery: No - Suicide/Smoking/Psychosocial Hx Smoking History: Current some day smoker Have you smoked in the past 12 months: Yes Number of Cigarettes Smoked Daily: 0 Cigars Per Day: 20 Information on smoking cessation initiated: Yes 'Breaking Loose' booklet given: 04/10/17 Hx Alcohol Use: No Drug/Substance Use Hx: No Substance Use Type: Alcohol Hx Substance Use Treatment: Yes Review of Systems - Review of Systems Comments:: 04/17/19 21:28 Constitutional: Positive for chills, fever, fatigue. HENT: Positive for sore throat. Negative for rhinorrhea, congestion. Eyes: Positive for photophobia. Negative for visual deficit. Respiratory: Negative for shortness of breath, cough, and wheezing. Cardiovascular: Negative for chest pain, palpitations, and leg swelling. Gastrointestinal: Negative for abdominal pain, blood in stool, constipation, diarrhea, nausea, and vomiting. Genitourinary: Negative for dysuria, flank pain, and hematuria. Musculoskeletal: Positive for myalgias and neck pain. Skin: Negative for rash. Neurological: Positive for headache. Negative for light-headedness, dizziness, syncope, weakness, numbness. Psychiatric/Behavioral: Negative for behavioral problems and confusion. *Physical Exam - Vital Signs Last Vital Signs Temp Pulse Resp BP Pulse Ox 101.3 F H 73 20 116/76 100 04/17/19 16:43 04/17/19 16:43 04/17/19 16:43 04/17/19 16:43 04/17/19 16:43 - Physical Exam Comments: 04/17/19 21:26 Gen: Alert, NAD, comfortable-appearing. HEENT: PERRL, EOMI, MMM, NCAT. No conjunctival pallor. Sclera are non-icteric. Oropharynx is clear. Neck supple, negative brudzinki. CV: Regular rate and rhythm. No murmurs, rubs, or gallops. PULM: No resp distress. CTAB, no wheezes, rales, or rhonchi. ABD: soft, NT/ND, no rebound tenderness or guarding, no CVA tenderness. BACK: No TTP of c/t/l-spine. No step-offs or deformities. MSK: No bony deformities. 2+ pulses in all extremities. NEURO: AAOx3. PERRL. No gross CN deficits. Strength and sensation grossly intact throughout. EXTREMITIES: No cyanosis. No clubbing. No edema. No calf tenderness. PSYCH: Normal mood and thought pattern. SKIN: Warm and dry. Normal capillary refill. No rashes. No jaundice. Procedures - Lumbar Puncture Indication: Meningitis CT Scan: Yes Betadine Prep: Yes Position: Sitting Volume(ml): 12 (1% lidocaine w/o epi) Lumbar Puncture Kit: Adult Traumatic Tap: No Tubes Obtained: 4 Clear Fluid: Yes Complications: No ED Treatment Course - LABORATORY CBC & Chemistry Diagram: 04/17/19 18:08 04/17/19 18:08 - RADIOLOGY Radiology Studies Ordered: Category Date Time Status HEAD CT WITHOUT CONTRAST [CT] Stat CT Scan 04/17/19 17:22 Ordered Medical Decision Making - Medical Decision Making 28yo M no PMH presents from urgent care with fever, headache, neck pain, photophobia, and sore throat (resolved) x6days. Strep test negative at urgent care. Concern for meningitis - give abx empirically, labs, and perform LP to r/ o. Headache bitemporal, pressure type, and no neurologic deficits or head injury - low concern for hemorrhage such as SDH, but r/o with CTH. Also consider viral meningitis or other viral infection such as a viral URI, particularly since he initially had a sore throat. -Labs: CBC, CMP, coags, Lact, BCx, Babesia, Lyme, Ehrlichia -CTH -LP -Decadron, Ceftriaxone, and Vanc -Dispo: pending w/u 04/17/19 21:18 CTH: no acute changes. Risks and benefits of LP discussed. Pt consents. LP done. Labs reviewed. No concerning findings, lact 0.8, WBC 4.7. Pending CSF, Babesia, Lyme, and Ehrlichia. *DC/Admit/Observation/Transfer Diagnosis at time of Disposition: Fever Qualifiers: Fever type: unspecified Qualified Code(s): R50.9 - Fever, unspecified - Discharge Dispostion Disposition: HOME Condition at time of disposition: Good - Referrals Referrals: [facility] [place] [Provider Group] - Patient Instructions Printed Discharge Instructions: Feverfew (Alternative Therapy) Additional Instructions: Drink plenty fluids. Alternate Tylenol Motrin as needed as directed for fever. Follow-up in the [facility] in 1-2 days. Return to the emergency department for any severe worsening symptoms. When he follow-up at the clinic they will review all the blood work which has not yet return today. Return to ED for any concerning symptoms. - Post Discharge Activity Forms/Work/School Notes: Back to Work
--- NOTE | 2019-04-17 17:35 | PDOC ---
Attending Attestation - Resident Resident Name: Anyi Ernandez - ED Attending Attestation I have performed the following: I have examined & evaluated the patient, The case was reviewed & discussed with the resident, I agree w/resident's findings & plan, Exceptions are as noted - HPI HPI: 04/17/19 17:33 28-year-old male with no past medical history presents from urgent care to rule out meningitis. Patient reported 5 days ago of developing headache, photophobia , neck discomfort sore throat. The following day he visited urgent care and had a strep test obtained which was negative. The patient was told that this was likely viral syndrome. However, the patient continued to persist to have symptoms including photophobia, headache and neck discomfort. Denies cough, vomiting. Denies sore throat. Continue to persist have fevers up to 101. Denies sick contacts or recent travels. Patient visited the urgent care today and sent the patient to the ER out of concerns for meningitis. - Physicial Exam PE: 04/17/19 17:35 GENERAL: Awake, alert, and fully oriented, in no acute distress HEAD: No signs of trauma EYES: PERRLA, EOMI, sclera anicteric, conjunctiva clear ENT: Auricles normal inspection, hearing grossly normal, nares patent, oropharynx clear without exudates. Moist mucosa NECK: Normal ROM, supple, negative brudzinki LUNGS: Breath sounds equal, clear to auscultation bilaterally. No wheezes, and no crackles HEART: Regular rate and rhythm, normal S1 and S2, no murmurs, rubs or gallops ABDOMEN: Soft, nontender, No guarding, no rebound. No masses EXTREMITIES: Normal range of motion, no edema. No clubbing or cyanosis. No cords, erythema, or tenderness. Negative kernig's. NEUROLOGICAL: Cranial nerves II through XII intact. Normal speech, normal gait. 5/5 strength and sensation intact. SKIN: Warm, Dry, normal turgor, no rashes or lesions noted. - Medical Decision Making 04/17/19 17:36 Vital Signs Temp Pulse Resp BP Pulse Ox 101.3 F H 73 20 116/76 100 04/17/19 16:43 04/17/19 16:43 04/17/19 16:43 04/17/19 16:43 04/17/19 16:43 This is a 28-year-old patient with headache, fevers and neck discomfort. I agree that this patient should be rule out for meningitis. Though the symptoms have been going on for several days, I suspect the patient may have viral meningitis. Patient reports that the Tylenol has completely remove the symptoms. However, given the consolation symptoms, should pursue with this workup. We'll obtain a head CT, labs and obtain a lumbar puncture. Risks and benefits were discussed with the patient including benefits of ruling out meningitis. Risks include pain, infection and post-lumbar headache. Patient consents for the procedure and agrees with the plan. 04/17/19 18:[address] reviewed. No acute findings. 04/17/19 18:32 There's a delay in the LP as the hospital does not have an adult LP kit. We have checked upstairs and had RNs search for a kit. As a result, [facility] will send an LP kit to [facility]. 04/17/19 19:00 [facility] Willson for further management and disposition.
[2019-04-17 18:51] LABS: HEMATOCRIT 44.9 % (35.4-49); MCH 24.4 pg (25.7-33.7); MCHC 31.3 g/dl (32.0-35.9); MEAN CELL VOLUME 78.2 fl (80-96); MEAN PLT VOLUME 8.5 fl (7.5-11.1); PLATELET COUNT 179 K/MM3 (134-434); RBC 5.74 M/mm3 (4.00-5.60); RDW 14.1 % (11.9-15.9); WHITE BLOOD COUNT 4.7 K/mm3 (4.0-10.8)
[2019-04-17 19:00] LABS: ALBUMIN 4.1 g/dl (3.4-5.0); BILIRUBIN,TOTAL 0.7 mg/dl (0.2-1); CALCIUM 9.2 mg/dl (8.5-10); CREATININE 0.9 mg/dl (0.55-1.3); POTASSIUM 3.8 mmol/L (3.5-5.1); TOT PROT 7.4 g/dl (6.4-8.2)
[2019-04-17 19:03] LABS: INR 1.22 (0.82-1.09); PROTHROMBIN TIME (PATIENT) 13.6 SEC (10.2-13.0)
[2019-04-17] MEDS ORDERED: DEXAMETHASONE SOD PHOSPHATE 20 MG/5 ML VIAL IVPB ONE (19:09)
[2019-04-17] MEDS ORDERED: VANCOMYCIN 1 GM in D5W (PRE-DOCKED) 1,000 MG/250 ML IVPB ONE (19:09)
[2019-04-17] MEDS ORDERED: CEFTRIAXONE 2,000 MG in DEXTROSE 5%-WATER - 50 ML IVPB ONE (19:09)
[2019-04-17] MEDS ORDERED: DEXAMETHASONE SOD PHOSPHATE 10 MG/1 ML VIAL ONE (19:40)
[2019-04-17] MEDS ORDERED: LIDOCAINE HCL 2% (50ML VIAL) SQ ONE (19:40)
[2019-04-17] MEDS ORDERED: LIDOCAINE HCL 2% (20ML MULTI-DOSE VIAL) NR ONE (19:43)
[2019-04-17] MEDS ORDERED: VANCOMYCIN 1,000 MG VIAL (RESTRICTED TO ID ONLY) ONE (19:47)
[2019-04-17 22:09] LABS: BF GLUCOSE (CSF ONLY) 56 mg/dL (40-70)
[2019-04-17 22:13] LABS: CSF APPEARANCE CLEAR; CSF COLOR COLORLESS
[2019-04-17 22:14] LABS: CSF WBC 4
[2019-04-17 22:15] LABS: CSF APPEARANCE CLEAR; CSF COLOR COLORLESS; CSF WBC 4
--- NOTE | 2019-04-17 22:27 | PDOC ---
*Physical Exam - Vital Signs Last Vital Signs Temp Pulse Resp BP Pulse Ox 101.3 F H 73 20 116/76 100 04/17/19 16:43 04/17/19 16:43 04/17/19 16:43 04/17/19 16:43 04/17/19 16:43 ED Treatment Course - LABORATORY CBC & Chemistry Diagram: 04/17/19 18:08 04/17/19 18:08 - ADDITIONAL ORDERS Additional order review: Laboratory Results 04/17/19 04/17/19 04/17/19 22:10 20:15 20:15 PT with INR INR PTT (Actin FS) Sodium Potassium Chloride Carbon Dioxide Anion Gap BUN Creatinine Est GFR (CKD-EPI)AfAm Est GFR (CKD-EPI)NonAf Random Glucose Lactic Acid Calcium Total Bilirubin AST ALT Alkaline Phosphatase Total Protein Albumin Urine Color Yellow Urine Appearance Clear Urine pH 5.0 Urine Protein Trace Urine Glucose (UA) Negative Urine Ketones 1+ H Urine Blood Negative Urine Nitrite Negative Urine Bilirubin 1+ H Urine Urobilinogen 0.2 Ur Leukocyte Esterase Negative CSF Appearance Clear Clear CSF Color Colorless Colorless CSF WBC 4 4 CSF RBC 24 41 CSF Neutrophils No Result Required. No Result Required. CSF Lymphocytes No Result Required. No Result Required. CSF Eosinophils No Result Required. No Result Required. CSF Basophils No Result Required. No Result Required. CSF Macrophages No Result Required. No Result Required. CSF Plasma Cells No Result Required. No Result Required. CSF Diff Comment No Result Required. No Result Required. CSF Comment Tube # 4 Tube # 1 CSF Glucose No Result Required. 56 CSF Total Protein No Result Required. 20 04/17/19 04/17/19 04/17/19 18:30 18:08 18:08 PT with INR 13.6 H INR 1.22 PTT (Actin FS) Sodium 137 Potassium 3.8 Chloride 100 Carbon Dioxide 28 Anion Gap 9 BUN 11.0 Creatinine 0.9 Est GFR (CKD-EPI)AfAm 132.37 Est GFR (CKD-EPI)NonAf 114.21 Random Glucose 90 Lactic Acid 0.8 Calcium 9.2 Total Bilirubin 0.7 AST 38 H ALT 43 Alkaline Phosphatase 67 Total Protein 7.4 Albumin 4.1 Urine Color Urine Appearance Urine pH Urine Protein Urine Glucose (UA) Urine Ketones Urine Blood Urine Nitrite Urine Bilirubin Urine Urobilinogen Ur Leukocyte Esterase CSF Appearance CSF Color CSF WBC CSF RBC CSF Neutrophils CSF Lymphocytes CSF Eosinophils CSF Basophils CSF Macrophages CSF Plasma Cells CSF Diff Comment CSF Comment CSF Glucose CSF Total Protein 04/17/19 18:08 PT with INR INR PTT (Actin FS) 32.9 Sodium Potassium Chloride Carbon Dioxide Anion Gap BUN Creatinine Est GFR (CKD-EPI)AfAm Est GFR (CKD-EPI)NonAf Random Glucose Lactic Acid Calcium Total Bilirubin AST ALT Alkaline Phosphatase Total Protein Albumin Urine Color Urine Appearance Urine pH Urine Protein Urine Glucose (UA) Urine Ketones Urine Blood Urine Nitrite Urine Bilirubin Urine Urobilinogen Ur Leukocyte Esterase CSF Appearance CSF Color CSF WBC CSF RBC CSF Neutrophils CSF Lymphocytes CSF Eosinophils CSF Basophils CSF Macrophages CSF Plasma Cells CSF Diff Comment CSF Comment CSF Glucose CSF Total Protein 04/17/19 18:08 RBC 5.74 H MCV 78.2 L MCHC 31.3 L RDW 14.1 MPV 8.5 - Medications Given in the ED: ED Medications Discontinued Medications Generic Name Dose Route Start Last Admin Trade Name Freq PRN Reason Stop Dose Admin Dexamethasone Sodium Phosphate 10 mg 04/17/19 19:09 04/17/19 19:15 Decadron Injection - IVPB 04/17/19 19:10 10 mg ONCE ONE Administration Ceftriaxone Sodium 2,000 mg/ 50 mls @ 100 mls/hr 04/17/19 19:09 04/17/19 19: 25 Dextrose IVPB 04/17/19 19:38 100 mls/hr ONCE ONE Administration Lidocaine HCl 1 mg 04/17/19 19:40 04/17/19 19:45 Xylocaine 2% SQ 04/17/19 19:41 1 mg ONCE ONE Administration Sodium Chloride 1,000 ml 04/17/19 17:21 04/17/19 18:16 Normal Saline - IV 04/17/19 17:22 1,000 ml ONCE ONE Administration Vancomycin HCl 1,000 mg 04/17/19 19:09 04/17/19 19:55 Vancomycin (Pre-Docked) IVPB 04/17/19 19:10 1,000 mg ONCE ONE Administration Protocol Medical Decision Making - Medical Decision Making 04/17/19 22:24 28 years old with no past medical history presents with six-day history of fever headache neck pain sore throat and had been to a urgent care diagnosed with viral syndrome was given Tylenol rapid strep was negative No overt tick exposures Patient was signed out to me pending lumbar puncture Patient consented for lumbar puncture. Patient tolerated procedure well. No significant WBCs noted Differential diagnosis at this time includes tick borne illness versus viral illness We'll have patient follow up with our clinic in 1-2 days to follow-up all lab results and tick panel Findings, the need for follow-up and strict return instructions discussed patient. *DC/Admit/Observation/Transfer Diagnosis at time of Disposition: Fever Qualifiers: Fever type: unspecified Qualified Code(s): R50.9 - Fever, unspecified - Discharge Dispostion Disposition: HOME Decision to Admit order: No - Referrals Referrals: [facility] [place] [Provider Group] - Patient Instructions Printed Discharge Instructions: Feverfew (Alternative Therapy) Additional Instructions: Drink plenty fluids. Alternate Tylenol Motrin as needed as directed for fever. Follow-up in the [facility] in 1-2 days. Return to the emergency department for any severe worsening symptoms. When he follow-up at the clinic they will review all the blood work which has not yet return today. Return to ED for any concerning symptoms. - Post Discharge Activity Forms/Work/School Notes: Back to Work
[2019-04-17 22:30] VITALS: BP 114/72; PULSE 62; TEMP 98.6
[2019-04-21 00:09] LABS: BABESIA MICROTI ANTIBODY IGG <1:10 (Neg:<1:10); BABESIA MICROTI ANTIBODY IGM <1:10 (Neg:<1:10)
== END 2019-04-17 22:38 | disposition home or self-care (01) ==
LOC: FER 16:40
PROC: 3E0337Z Introduction of Electrolytic and Water Balance Substance into Peripheral Vein, Percutaneous Approach (ICD-10-PCS; principal; 2019-04-17)
PROC: 3E03329 Introduction of Other Anti-infective into Peripheral Vein, Percutaneous Approach (ICD-10-PCS; 2019-04-17)
PROC: 3E033GC Introduction of Other Therapeutic Substance into Peripheral Vein, Percutaneous Approach (ICD-10-PCS; 2019-04-17)
PROC: 3E0337Z Introduction of Electrolytic and Water Balance Substance into Peripheral Vein, Percutaneous Approach (ICD-10-PCS; 2019-04-17)
PROC: 009U3ZZ Drainage of Spinal Canal, Percutaneous Approach (ICD-10-PCS; 2019-04-17)
DX: R50.9 Fever, unspecified (principal); F17.210 Nicotine dependence, cigarettes, uncomplicated
CPT/HCPCS: 36415; 70450-TC; 80053; 81003; 82945; 83605; 84157; 85027; 85610; 85730; 86618; 86753; 87040; 87070; 87205; 87880; 99285-25

== ENCOUNTER 2021-01-13 15:27 | Inpatient (IN) | payer OTHER ==
[2021-01-13 15:54] VITALS: BMI 24.7
[2021-01-13] MEDS ORDERED: IBUPROFEN 400 MG TABLET (FP) PO PRN (16:43)
[2021-01-13] MEDS ORDERED: MAGNESIUM HYDROX 2400MG/30ML ORAL SUSPENSION 30 ML CUP PO PRN (16:43)
[2021-01-13] MEDS ORDERED: BISMUTH SUBSALICYLATE 524 MG/30 ML UD PO PRN (16:43)
[2021-01-13] MEDS ORDERED: ONDANSETRON *ODT* 4 MG TABLET SL PRN (16:43)
[2021-01-13] MEDS ORDERED: MENTHOL/PHENOL 1 EACH UD MM PRN (16:43)
[2021-01-13] MEDS ORDERED: ACETAMINOPHEN 325 MG TABLET (FP) PO PRN ×2 (16:43)
[2021-01-13] MEDS ORDERED: MAGNESIUM CITRATE 300 ML BOTTLE PO PRN (16:43)
[2021-01-13] MEDS ORDERED: MAG HYDROX/AL HYDROX/SIMETH 30 ML UNIT-DOSE CUP PO PRN (16:43)
[2021-01-13] MEDS ORDERED: NICOTINE POLACRILEX 2 MG GUM BUC PRN (16:43)
[2021-01-13] MEDS ORDERED: METHOCARBAMOL 500 MG TABLET PO PRN (16:43)
[2021-01-13] MEDS: hydrOXYzine PAMOATE 25 MG CAPSULE (FP) PO SCH ×2 (18:29→22:56)
[2021-01-13] MEDS ORDERED: MELATONIN 5 MG TABLETS PO SCH (22:00)
[2021-01-13] MEDS: THIAMINE HCL 100 MG TABLET (FP) PO SCH (22:56)
[2021-01-14] MEDS: hydrOXYzine PAMOATE 25 MG CAPSULE (FP) PO SCH ×5 (07:26→22:41)
[2021-01-14] MEDS: PRENATAL VITAMINS W/ FOLIC ACID TABLET (FP) PO SCH (10:52)
[2021-01-14 11:07] LABS: HEMATOCRIT 42.4 % (35.4-49); HEMOGLOBIN 13.7 GM/dL (11.7-16.9); MCH 25.3 pg (25.7-33.7); MCHC 32.3 g/dl (32.0-35.9); MEAN CELL VOLUME 78.2 fl (80-96); MEAN PLT VOLUME 8.4 fl (7.5-11.1); PLATELET COUNT 209 K/MM3 (134-434); RBC 5.42 M/mm3 (4.00-5.60); RDW 16.3 % (11.9-15.9); WHITE BLOOD COUNT 5.1 K/mm3 (4.0-10.0)
[2021-01-14 11:19] LABS: BLOOD UREA NITROGEN 10.2 mg/dL (7-18)
[2021-01-14 11:20] LABS: CALCIUM 9.4 mg/dL (8.5-10.1)
[2021-01-14 11:22] LABS: CREATININE 0.9 mg/dL (0.55-1.3)
[2021-01-14 11:23] LABS: BILIRUBIN,TOTAL 0.9 mg/dL (0.2-1)
[2021-01-14] MEDS ORDERED: chlordiazePOXIDE HCL 25 MG CAPSULE PO PRN (11:45)
[2021-01-14] MEDS: chlordiazePOXIDE HCL 25 MG CAPSULE PO SCH ×3 (11:58→22:40)
[2021-01-14] MEDS ORDERED: MELATONIN 5 MG TABLETS PO SCH (22:00)
[2021-01-14] MEDS: THIAMINE HCL 100 MG TABLET (FP) PO SCH (22:40)
[2021-01-15] MEDS: chlordiazePOXIDE HCL 25 MG CAPSULE PO SCH (06:58)
[2021-01-15] MEDS: hydrOXYzine PAMOATE 25 MG CAPSULE (FP) PO SCH ×2 (06:58→11:02)
[2021-01-15] MEDS ORDERED: LORazepam 1 MG TABLET PO PRN (10:13)
[2021-01-15] MEDS ORDERED: hydrOXYzine PAMOATE 25 MG CAPSULE (FP) PO PRN (10:16)
[2021-01-15] MEDS: PRENATAL VITAMINS W/ FOLIC ACID TABLET (FP) PO SCH (10:32)
[2021-01-15] MEDS: LORazepam 2 MG TABLET PO SCH ×2 (10:32→18:05)
[2021-01-15 17:10] VITALS: BP 125/75; PULSE 66; TEMP 98.2
[2021-01-16] MEDS ORDERED: chlordiazePOXIDE HCL 25 MG CAPSULE PO SCH (05:00)
[2021-01-16 06:06] LABS: SARS-CoV-2 NAA Not Detected (Not Detected)
[2021-01-17] MEDS ORDERED: chlordiazePOXIDE HCL 10 MG CAPSULE PO PRN
[2021-01-17] MEDS ORDERED: LORazepam 1 MG TABLET PO SCH (05:00)
[2021-01-17] MEDS ORDERED: chlordiazePOXIDE HCL 10 MG CAPSULE PO SCH (05:00)
[2021-01-18] MEDS ORDERED: LORazepam 0.5 MG TABLET PO PRN
[2021-01-18] MEDS ORDERED: LORazepam 0.5 MG TABLET PO SCH (05:00)
[2021-01-18] MEDS ORDERED: chlordiazePOXIDE HCL 10 MG CAPSULE PO SCH (05:00)
[2021-01-19] MEDS ORDERED: chlordiazePOXIDE HCL 10 MG CAPSULE PO ONE (05:00)
[2021-01-19] MEDS ORDERED: LORazepam 0.5 MG TABLET PO ONE (05:00)
== END 2021-01-15 19:52 | disposition left against medical advice (07) | DRG 770 ==
LOC: YASAS 15:27 → UNDOADMIN 17:49 → Y6N 17:49
PROVIDERS: ADMIT Allergy & Immunology; ATTEND Allergy & Immunology
PROC: HZ2ZZZZ Detoxification Services for Substance Abuse Treatment (ICD-10-PCS; principal; 2021-01-13)
DX: F10.230 Alcohol dependence with withdrawal, uncomplicated (principal); F14.20 Cocaine dependence, uncomplicated; F17.210 Nicotine dependence, cigarettes, uncomplicated; F19.282 Other psychoactive substance dependence with psychoactive substance-induced sleep disorder; F19.24 Other psychoactive substance dependence with psychoactive substance-induced mood disorder; F31.9 Bipolar disorder, unspecified; Z91.5 Personal history of self-harm; Z91.011 Allergy to milk products
CPT/HCPCS: 36415; 80053; 85027; 86780; C9803; U0003; U0005